=== PATIENT | female | born 1990 | race Caucasian/White ===

== ENCOUNTER 2018-05-25 19:04 | Emergency (ER) | payer SELFPAY ==
[2018-05-25] MEDS ORDERED: ONDANSETRON 4 MG/2 ML VIAL IVPUSH ONE (20:00)
[2018-05-25] MEDS ORDERED: PANTOPRAZOLE SODIUM 40 MG VIAL IVPB ONE (20:00)
[2018-05-25] MEDS ORDERED: SODIUM CHLORIDE 1,000 ML IV STA (20:00)
--- NOTE | 2018-05-25 20:00 | PDOC ---
Rapid Medical Evaluation Chief Complaint: Hemoptysis Medical Evaluation: Allergies Allergy/AdvReac Type Severity Reaction Status Date / Time No Known Allergies Allergy Verified 05/25/18 19:57 Vital Signs Temp Pulse Resp BP Pulse Ox 98.8 F 106 H 18 134/99 98 05/25/18 19:53 05/25/18 19:53 05/25/18 19:53 05/25/18 19:53 05/25/18 19:53 have performed a brief in-person evaluation of this patient. The patient presents with a chief complaint of: hx of gastritis; L sided CP and epigastric pain this morning (burning in nature); also with emesis with some blood; patient has been drinking heavily since 5 days ago Pertinent physical exam findings: In mild distress due to pain; abdomen soft I have ordered the following: Labs, IVF, Protonix, Zofran The patient will proceed to the ED for further evaluation. 05/25/18 19:59
[2018-05-25 20:07] VITALS: BP 134/99; PULSE 106; TEMP 98.8; BMI 29.2
[2018-05-25 20:49] LABS: BASO % 1.2 % (0-2.0); EOS % 0.3 % (0-4.5); HEMOGLOBIN 14.4 GM/dL (10.7-15.3); LYMPH % 43.7 % (8-40); MCH 30.4 pg (25.7-33.7); MCHC 34.3 g/dl (32.0-36.0); MEAN CELL VOLUME 88.7 fl (80-96); MEAN PLT VOLUME 6.8 fl (7.5-11.1); MONO % 7.6 % (3.8-10.2); NEUT % 47.2 % (42.8-82.8); PLATELET COUNT 304 K/MM3 (134-434); RBC 4.73 M/mm3 (3.60-5.2); RDW 13.4 % (11.6-15.6); WHITE BLOOD COUNT 5.9 K/mm3 (4.0-10.0)
--- NOTE | 2018-05-25 21:06 | PDOC ---
History of Present Illness - General Chief Complaint: Vomiting Blood Stated Complaint: PAIN Time Seen by Provider: 05/25/18 19:59 - History of Present Illness Initial Comments: 05/25/18 21:05 27 yo F with h/o Etoh absue, polysusbatnce abuse who p/w hematemesis x 1 day. Patient reports 2 days of multiple episodes of nonprojectile, emesis. This morning with bright red emesis, later evolved to dark, brown, clotted blood. Also endorses severe, sharp, midepigastric pain, worse with PO intake. No identifiable alleviators. Normal bowel habits and stools, with asbent BPR. Reports left arm numbness today, lasting seconds now resolved. Similar report of bright red hematemesis years ago. + left sided headache one day, dull, no asx. symptoms or alleviators. + dysuria x 2 weeks. Patient denies vision change, palpitations, F/C, CP, SOB, urinary complaints, abdominal pain, diarrhea, constipation, lightheadedness, weakness, sensory changes. PMHx: as noted above. Denies h/o abdominal surgery. Denies chronic NSAID use. Does not f/w GI. Denies h/o endoscopy. ROS: as noted SHx: Daily Etoh use, with tequilla, and beer for 2 years. Denies tobacco use. + Recreational cocaine use Allergies: NKDA Past History - Past Medical History Allergies/Adverse Reactions: Allergies Allergy/AdvReac Type Severity Reaction Status Date / Time No Known Allergies Allergy Verified 05/25/18 19:57 Home Medications: Ambulatory Orders Multivitamins [Tab-A-Vit -] 1 tab PO DAILY 05/26/18 Ranitidine [Zantac -] 150 mg PO BID #30 tablet 05/26/18 COPD: No Psychiatric Problems: Yes (DEPRESSION.) - Suicide/Smoking/Psychosocial Hx Smoking History: Never smoked Review of Systems - Review of Systems Comments:: 05/25/18 21:05 GENERAL/CONSTITUTIONAL: No fever or chills. No weakness. HEAD, EYES, EARS, NOSE AND THROAT: No change in vision. No ear pain or discharge. No sore throat. CARDIOVASCULAR: No chest pain or shortness of breath RESPIRATORY: No cough, wheezing, or hemoptysis. GASTROINTESTINAL:+ Abdominal pain, nausea, vomiting. No diarrhea or constipation. GENITOURINARY: No dysuria, frequency, or change in urination. MUSCULOSKELETAL: No joint or muscle swelling or pain. No neck or back pain. SKIN: No rash NEUROLOGIC: No headache, vertigo, loss of consciousness, or change in strength/ sensation. ENDOCRINE: No increased thirst. No abnormal weight change HEMATOLOGIC/LYMPHATIC: No anemia, easy bleeding, or history of blood clots. ALLERGIC/IMMUNOLOGIC: No hives or skin allergy. *Physical Exam - Vital Signs Last Vital Signs Temp Pulse Resp BP Pulse Ox 98.8 F 106 H 18 134/99 98 05/25/18 19:53 05/25/18 19:53 05/25/18 19:53 05/25/18 19:53 05/25/18 19:53 - Physical Exam Comments: 05/25/18 21:05 GENERAL: Awake, alert, and fully oriented, in no acute distress HEAD: No signs of trauma, normocephalic, atraumatic EYES: PERRLA, EOMI, sclera anicteric, conjunctiva clear ENT: Hearing grossly normal, nares patent, oropharynx clear without exudates. Moist mucosa NECK: Normal ROM, supple, no lymphadenopathy, JVD, or masses LUNGS: No distress, speaks full sentences, clear to auscultation bilaterally HEART: Regular rate and rhythm, normal S1 and S2, no murmurs, rubs or gallops, peripheral pulses normal and equal bilaterally. ABDOMEN: + epigastria ttp. Soft, NDS, normoactive bowel sounds. No guarding, no rebound. No masses. Neg CVA ttp. RECTAL: Absent gross blood, hemorrhoids, fissures, prolapse. EXTREMITIES : Normal inspection, Normal range of motion, no edema. No clubbing or cyanosis. NEUROLOGICAL: Cranial nerves II through XII grossly intact. Normal speech, normal gait, no focal sensorimotor deficits SKIN: Warm, Dry, normal turgor, no rashes or lesions noted Moderate Sedation - Procedure Monitoring Vital Signs: Procedure Monitoring Vital Signs Temperature 98.8 F 05/25/18 19:53 Pulse Rate 106 H 05/25/18 19:53 Respiratory Rate 18 05/25/18 19:53 Blood Pressure 134/99 05/25/18 19:53 O2 Sat by Pulse Oximetry (%) 98 05/25/18 19:53 ED Treatment Course - LABORATORY CBC & Chemistry Diagram: 05/26/18 04:00 05/25/18 20:20 - ADDITIONAL ORDERS Additional order review: 05/25/18 20:20 RBC 4.73 MCV 88.7 MCHC 34.3 RDW 13.4 MPV 6.8 L Neutrophils % 47.2 Lymphocytes % 43.7 H Monocytes % 7.6 Eosinophils % 0.3 Basophils % 1.2 Medical Decision Making - Medical Decision Making 05/25/18 21:16 27 yo with h/o Etoh absue, polysusbatnce abuse who p/w hematemesis x 1 day, epigastria pain x 1 week. HR 106, vitals otherwise wnl, AF, A&Ox3. + Epigastric ttp. Will evaluate for UGI bleed. Will consider PUD, esophagitis/gastritis, sergio riley, variceal bleed. Currently asymptoimatic and HDS. Low suspicion borhaave syndrome. No evidence ruptured ED Course: CBC,CMP, T&S, Pt/INR Protonix NS 05/25/18 21:23 CBC: Unremarkable 05/25/18 21:57 05/25/18 23:52 UA: Neg A CBC,CMP Unremarkable CT AP: Unremarkable 05/26/18 02:54 Patient ED obs, pending coags, repeat CBC, pain control, reasses 05/26/18 03:03 Patient endorsed to medicine as ED obs. 05/26/18 05:21 Patient stable for d/c with return precautions. Advised to f/u GI *DC/Admit/Observation/Transfer Diagnosis at time of Disposition: Hematemesis with nausea - Discharge Dispostion Disposition: HOME Condition at time of disposition: Stable Decision to Admit order: No - Prescriptions Prescriptions: Ranitidine [Zantac -] 150 mg PO BID #30 tablet - Referrals Referrals: Fadi Swain MD [Staff Physician] - - Patient Instructions Printed Discharge Instructions: DI for Vomiting -- Adult Additional Instructions: Please return to the emergency department with any new or worsening symptoms or concerns. Please follow up with your primary care physician within 72 hours. Please follow up with gastroenterology within 48 hours. Take ranitidine two times a day as needed for pain. - Post Discharge Activity - Attestations Physician Attestion: 05/26/18 02:55 I attest to the information provided in this note.
[2018-05-25] MEDS ORDERED: PANTOPRAZOLE SODIUM 40 MG/100 ML BAG IVPB ONE (21:16)
[2018-05-25] MEDS ORDERED: ONDANSETRON 4 MG/2 ML VIAL ONE (21:16)
[2018-05-25 21:21] LABS: ALBUMIN 4.2 g/dl (3.4-5.0); ALK PHOS 61 U/L (45-117); ANION GAP 11 MMOL/L (8-16); BILIRUBIN,TOTAL 0.4 mg/dL (0.2-1); BLOOD UREA NITROGEN 6 mg/dL (7-18); CALCIUM 8.6 mg/dL (8.5-10.1); CHLORIDE 107 mmol/L (98-107); CO2 25 mmol/L (21-32); CREATININE 0.6 mg/dL (0.55-1.3); GLUCOSE,RANDOM 113 mg/dL (74-106); LIPASE 175 U/L (73-393); POTASSIUM 3.8 mmol/L (3.5-5.1); SGOT/AST 26 U/L (15-37); SGPT/ALT 31 U/L (13-61); SODIUM 143 mmol/L (136-145); TOT PROT 7.7 g/dl (6.4-8.2)
[2018-05-25 23:37] LABS: COCAINE, UR NEGATIVE ng/ml (CUTOFF=300); METHADONE, UR NEGATIVE ng/ml (CUTOFF=300); OPIATES, URI NEGATIVE ng/ml (CUTOFF=300); PHENCYCLIDINE,URINE NEGATIVE ng/ml (CUTOFF=25); URINE AMPHETAMINES NEGATIVE ng/ml (CUTOFF=500); URINE BARBITURATES NEGATIVE ng/ml (CUTOFF=200); URINE BENZODIAZEPINES NEGATIVE ng/ml (CUTOFF=200)
--- NOTE | 2018-05-26 02:31 | PDOC ---
Attending Attestation - HPI HPI: 05/26/18 02:31 27 year old patient, with a significant past medical history of Etoh abuse and polysubstance abuse, who presents to the emergency department with, 1 day of hematemesis. As per patient, she has been experiencing multiple episode of bloody emesis which was initially bright red blood now dark colored clots. She denies any rectal bleeding. Allergies: NKDA - Medical Decision Making 05/26/18 02:31 History: 27-year-old female with pain Comparison: None Procedure: CT chest chest dated 26 May 2018 . Axial images obtained followed by coronal and sagittal reconstructions . Intravenous contrast utilized, Omni 350/100 cc Findings: Some motion noted with the exam. No evidence of mediastinal hematoma. No evidence of a thoracic aortic aneurysm . No enlarged mediastinal or hilar adenopathy or masses noted. No pleural or pericardial effusion noted. No lung nodules, masses or infiltrates present. No evidence for pneumothorax. Impression: No evidence of focal infiltrate, pleural effusion or pneumothorax. CT scan abdomen and pelvis May 26, 2018: Axial images obtained followed by coronal and sagittal reconstructions. Intravenous contrast utilized, Omni 350/100 cc . 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 The liver, spleen, pancreas, adrenal glands and kidneys unremarkable. Gallbladder gallbladder fossa normal in appearance. No ureteral or bladder abnormalities noted. Rectum and perirectal space unremarkable. Terminal ileum and appendix within normal limits. No large or small bowel inflammatory changes evident. Uterus retroverted in position. Follicular change present bilateral ovaries. Abdominal aorta/branch vessels/IVC unremarkable. No abdominal wall defects present. Impression: 1.No evidence of GI or tract obstruction or inflammatory change. Terminal ileum and appendix within normal limits. 2. No adnexal masses appreciated Read by: Chu Carson MD <Savage Tsai - Last Filed: 05/26/18 02:31> - Resident Resident Name: Iam Romero - ED Attending Attestation I have performed the following: I have examined & evaluated the patient, The case was reviewed & discussed with the resident, I agree w/resident's findings & plan - Physicial Exam PE: 05/26/18 03:40 Agree with resident exam - Medical Decision Making 05/26/18 03:41 27-year-old female with history of alcohol abuse for evaluation of vomiting CT scans of the chest abdomen and pelvis show no acute abnormality Patient has not vomited in the emergency department She will be held for observation and a serial CBC, if negative likely discharged home with outpatient GI follow-up Impression vomiting Alcohol abuse <Debbie Jolley - Last Filed: 05/26/18 03:42> Attestations - Attestations 05/26/18 02:37 Documentation prepared by Savage Tsai, acting as medical historian for Debbie Jolley DO. <Savage Tsai - Last Filed: 05/26/18 02:31>
[2018-05-26 04:25] LABS: BASO % 1.4 % (0-2.0); EOS % 0.8 % (0-4.5); HEMATOCRIT 39.7 % (32.4-45.2); HEMOGLOBIN 13.8 GM/dL (10.7-15.3); LYMPH % 35.6 % (8-40); MCH 30.6 pg (25.7-33.7); MCHC 34.8 g/dl (32.0-36.0); MEAN CELL VOLUME 87.8 fl (80-96); MEAN PLT VOLUME 6.8 fl (7.5-11.1); MONO % 9.7 % (3.8-10.2); NEUT % 52.5 % (42.8-82.8); PLATELET COUNT 288 K/MM3 (134-434); RBC 4.52 M/mm3 (3.60-5.2); RDW 13.4 % (11.6-15.6); WHITE BLOOD COUNT 6.5 K/mm3 (4.0-10.0)
[2018-05-26 04:37] LABS: INR 1.13 (0.83-1.09); PROTHROMBIN TIME (PATIENT) 13.4 SEC (9.7-13.0)
== END 2018-05-26 06:05 | disposition home or self-care (01) ==
LOC: JER 19:04
PROC: 3E033GC Introduction of Other Therapeutic Substance into Peripheral Vein, Percutaneous Approach (ICD-10-PCS; principal; 2018-05-25)
PROC: 3E0337Z Introduction of Electrolytic and Water Balance Substance into Peripheral Vein, Percutaneous Approach (ICD-10-PCS; 2018-05-25)
DX: K92.0 Hematemesis (principal); F19.10 Other psychoactive substance abuse, uncomplicated
CPT/HCPCS: 36415; 71260-TC; 74177-TC; 80053; 80307; 82550; 82553; 83690; 84484; 84703; 85025; 85610; 99282-25; J7030

== ENCOUNTER 2022-04-29 16:43 | Inpatient (IN) | payer SELFPAY ==
[2022-04-29] MEDS ORDERED: LORazepam 2 MG/ML SDV VIAL IM ONE (17:45)
[2022-04-29] MEDS ORDERED: POLYETHYLENE GLYCOL (HEALTHYLAX) 3350 17 GM PACKET PO PRN (18:05)
[2022-04-29] MEDS ORDERED: DICYCLOMINE HCL 10 MG CAPSULE PO PRN (18:05)
[2022-04-29] MEDS ORDERED: MAG HYDROX/AL HYDROX/SIMETH 30 ML UNIT-DOSE CUP PO PRN (18:05)
[2022-04-29] MEDS ORDERED: IBUPROFEN 400 MG TABLET (FP) PO PRN (18:05)
[2022-04-29] MEDS ORDERED: guaiFENesin 200 MG/10 ML 10 ML UNIT-DOSE CUPS PO PRN (18:05)
[2022-04-29] MEDS ORDERED: ACETAMINOPHEN 325 MG TABLET (FP) PO PRN ×2 (18:05)
[2022-04-29] MEDS ORDERED: P-EPHED 60MG/TRIPROLIDI 2.5MG TABLET PO PRN (18:05)
[2022-04-29] MEDS ORDERED: ONDANSETRON *ODT* 4 MG TABLET SL PRN (18:05)
[2022-04-29] MEDS ORDERED: BISMUTH SUBSALICYLATE 524 MG/30 ML PO PRN (18:05)
[2022-04-29] MEDS ORDERED: MELATONIN 5 MG TABLETS PO PRN (18:05)
[2022-04-29] MEDS ORDERED: LOPERAMIDE HCL 2 MG CAPSULE PO PRN (18:05)
[2022-04-29] MEDS ORDERED: MAGNESIUM HYDROX 2400MG/30ML ORAL SUSPENSION 30 ML CUP PO PRN (18:05)
[2022-04-29] MEDS ORDERED: IBUPROFEN 600 MG TABLET (FP) PO PRN (18:05)
[2022-04-29] MEDS ORDERED: BENZOCAINE/MENTHOL (CHLORASEPTIC ) LOZENGE MM PRN (18:05)
[2022-04-29] MEDS ORDERED: chlordiazePOXIDE HCL 25 MG CAPSULE PO PRN (18:08)
[2022-04-29] MEDS ORDERED: TRIMETHOBENZAMIDE HCL 200MG/2ML INJ IM ONE ×2 (18:20→18:26)
[2022-04-29 18:24] VITALS: BMI 25.7
[2022-04-29] MEDS ORDERED: chlordiazePOXIDE HCL 25 MG CAPSULE ONE (19:46)
[2022-04-29] MEDS: hydrOXYzine PAMOATE 25 MG CAPSULE (FP) PO PRN (22:00)
[2022-04-29] MEDS ORDERED: levETIRAcetam 500 MG TABLET (FP) PO SCH (22:00)
[2022-04-29] MEDS: chlordiazePOXIDE HCL 25 MG CAPSULE PO SCH (23:21)
[2022-04-29] MEDS: levETIRAcetam 500 MG TABLET (FP) PO SCH (23:21)
[2022-04-29] MEDS: THIAMINE HCL 100 MG TABLET (FP) PO SCH (23:27)
[2022-04-29] MEDS: FAMOTIDINE 10 MG TABLET PO SCH (23:52)
[2022-04-30] MEDS: chlordiazePOXIDE HCL 25 MG CAPSULE PO SCH ×4 (05:57→22:35)
[2022-04-30] MEDS: MICONAZOLE NITRATE 28 GM TUBE TP SCH ×3 (08:54→22:36)
[2022-04-30] MEDS: PRENATAL VITAMINS W/ FOLIC ACID TABLET (FP) PO SCH (10:16)
[2022-04-30] MEDS: levETIRAcetam 500 MG TABLET (FP) PO SCH ×2 (10:16→22:35)
[2022-04-30 11:28] LABS: HEMOGLOBIN 15.8 GM/dL (10.7-15.3); MCH 29.4 pg (25.7-33.7); MEAN CELL VOLUME 89.1 fl (80-96); MEAN PLT VOLUME 7.2 fl (7.5-11.1); PLATELET COUNT 291 10^3/uL (134-434); RBC 5.38 M/mm3 (3.60-5.2); RDW 12.9 % (11.6-15.6); WHITE BLOOD COUNT 5.9 K/mm3 (4.0-10.0)
[2022-04-30 11:38] LABS: CALCIUM 9.1 mg/dL (8.5-10.1)
[2022-04-30 11:39] LABS: BLOOD UREA NITROGEN 11.1 mg/dL (7-18)
[2022-04-30 11:42] LABS: CREATININE 0.9 mg/dL (0.55-1.3)
[2022-04-30] MEDS: FAMOTIDINE 10 MG TABLET PO SCH ×2 (11:43→22:35)
[2022-04-30 11:44] LABS: BILIRUBIN,TOTAL 0.7 mg/dL (0.2-1); TOT PROT 7.5 g/dl (6.4-8.2)
[2022-04-30] MEDS: THIAMINE HCL 100 MG TABLET (FP) PO SCH (22:35)
[2022-05-01] MEDS: chlordiazePOXIDE HCL 25 MG CAPSULE PO SCH ×4 (05:35→22:22)
[2022-05-01] MEDS ORDERED: propRANOLol HCL 10 MG TABLET PO ONE (09:45)
[2022-05-01] MEDS: METHOCARBAMOL 500 MG TABLET PO PRN (10:23)
[2022-05-01] MEDS: PRENATAL VITAMINS W/ FOLIC ACID TABLET (FP) PO SCH (10:23)
[2022-05-01] MEDS: FAMOTIDINE 10 MG TABLET PO SCH ×2 (10:23→22:21)
[2022-05-01] MEDS: levETIRAcetam 500 MG TABLET (FP) PO SCH ×2 (10:23→22:21)
[2022-05-01] MEDS: hydrOXYzine PAMOATE 25 MG CAPSULE (FP) PO PRN (10:23)
[2022-05-01] MEDS: SERTRALINE HCL 50 MG TABLET (FP) PO SCH (10:23)
[2022-05-01] MEDS: MICONAZOLE NITRATE 28 GM TUBE TP SCH ×2 (10:24→22:22)
[2022-05-01] MEDS: THIAMINE HCL 100 MG TABLET (FP) PO SCH (22:21)
[2022-05-01] MEDS: MELATONIN 5 MG TABLETS PO PRN (22:21)
[2022-05-02] MEDS ORDERED: chlordiazePOXIDE HCL 10 MG CAPSULE PO PRN
[2022-05-02] MEDS: chlordiazePOXIDE HCL 10 MG CAPSULE PO SCH ×4 (05:32→22:31)
[2022-05-02] MEDS: hydrOXYzine PAMOATE 25 MG CAPSULE (FP) PO PRN (05:35)
[2022-05-02] MEDS: METHOCARBAMOL 500 MG TABLET PO PRN (05:35)
[2022-05-02] MEDS: PRENATAL VITAMINS W/ FOLIC ACID TABLET (FP) PO SCH (10:22)
[2022-05-02] MEDS: levETIRAcetam 500 MG TABLET (FP) PO SCH ×2 (10:22→22:32)
[2022-05-02] MEDS: SERTRALINE HCL 50 MG TABLET (FP) PO SCH (10:22)
[2022-05-02] MEDS: FAMOTIDINE 10 MG TABLET PO SCH ×2 (10:22→22:32)
[2022-05-02] MEDS: MICONAZOLE NITRATE 28 GM TUBE TP SCH ×2 (10:23→22:31)
[2022-05-02] MEDS: THIAMINE HCL 100 MG TABLET (FP) PO SCH (22:31)
[2022-05-02] MEDS: MELATONIN 5 MG TABLETS PO PRN (22:31)
[2022-05-03] MEDS: chlordiazePOXIDE HCL 10 MG CAPSULE PO SCH ×2 (06:04→18:28)
[2022-05-03] MEDS: PRENATAL VITAMINS W/ FOLIC ACID TABLET (FP) PO SCH (09:58)
[2022-05-03] MEDS: FAMOTIDINE 10 MG TABLET PO SCH ×2 (09:58→22:44)
[2022-05-03] MEDS: SERTRALINE HCL 50 MG TABLET (FP) PO SCH (09:58)
[2022-05-03] MEDS: levETIRAcetam 500 MG TABLET (FP) PO SCH ×2 (09:58→22:49)
[2022-05-03] MEDS: MICONAZOLE NITRATE 28 GM TUBE TP SCH ×2 (09:59→22:49)
[2022-05-03] MEDS ORDERED: chlordiazePOXIDE HCL 10 MG CAPSULE PO SCH (18:15)
[2022-05-03 18:38] VITALS: RESP 18
[2022-05-03] MEDS: MELATONIN 5 MG TABLETS PO PRN (22:49)
[2022-05-03] MEDS: THIAMINE HCL 100 MG TABLET (FP) PO SCH (22:49)
[2022-05-04] MEDS ORDERED: chlordiazePOXIDE HCL 10 MG CAPSULE PO ONE (05:00)
[2022-05-04 09:47] VITALS: BP 106/64; PULSE 68; TEMP 98.6
== END 2022-05-04 09:40 | disposition home or self-care (01) | DRG 775 ==
LOC: YASAS 16:43 → Y6N 18:27 → Y3N 05-01 12:54
PROVIDERS: ADMIT Allergy & Immunology; ATTEND Surgery
PROC: HZ2ZZZZ Detoxification Services for Substance Abuse Treatment (ICD-10-PCS; principal; 2022-04-29)
DX: F10.230 Alcohol dependence with withdrawal, uncomplicated (principal); F10.24 Alcohol dependence with alcohol-induced mood disorder; F10.220 Alcohol dependence with intoxication, uncomplicated
CPT/HCPCS: 36415; 80053; 85027; 86780; C9803-CS; U0003; U0005